=== PATIENT | male | born 1945 | race Caucasian/White ===

== ENCOUNTER 2017-08-19 16:19 | Inpatient (IN) | payer MEDICARE, MEDICAID ==
[~2017-08-19] VITALS: Ht 167.6 cm; Wt 72.0 kg
[2017-08-19] MEDS ORDERED: SODIUM CHLORIDE 0.9% FLUSH 10 ML FLUSH IVF PRN (16:45)
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
[2017-08-19 16:55] VITALS: BP 142/74; PULSE 100; RESP 18; TEMP 99.9; O2SAT 99
[2017-08-19 17:00] VITALS: RESP 18; O2SAT 100
[2017-08-19 17:02] VITALS: BP 142/74; PULSE 102; RESP 18; TEMP 99.9; O2SAT 99
[2017-08-19] MEDS ORDERED: HYDROmorphone HCL PF 1 MG/ML VIAL IV PUSH ONE (17:15)
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
[2017-08-19 17:45] LABS: AUTOMATED NEUTROPHIL # 6.9 TH/MM3 (1.8-7.7); BASOPHIL % 0.3 % (0.0-2.0); EOSINOPHIL % 0.1 % (0.0-4.0); HEMATOCRIT 40.3 % (39.0-51.0); HEMO FLAGS DIFF FINAL; LYMPH % 10.6 % (9.0-44.0); LYMPHOCYTE # 0.9 TH/MM3 (1.0-4.8); MEAN CELL VOLUME 92.4 FL (80.0-100.0); MEAN CORPUSCULAR HEMOGLOBIN 31.3 PG (27.0-34.0); MEAN CORPUSCULAR HGB CONC 33.9 % (32.0-36.0); PLATELET COUNT 184 TH/MM3 (150-450); RED BLOOD COUNT 4.37 MIL/MM3 (4.50-5.90); RED CELL DISTRIBUTION WIDTH 13.9 % (11.6-17.2); WHITE BLOOD COUNT 8.3 TH/MM3 (4.0-11.0)
[2017-08-19 18:03] LABS: PROTHROMBIN TIME - PATIENT 10.9 SEC (9.8-11.6)
[2017-08-19] MEDS ORDERED: ACETAMINOPHEN/HYDROcodone 325 MG/10 MG TAB PO PRN (18:30)
[2017-08-19] MEDS ORDERED: ONDANSETRON HCL 4 MG/2 ML VIAL IV PUSH PRN (18:30)
[2017-08-19] MEDS ORDERED: PANTOPRAZOLE SODIUM 40 MG VIAL IV PUSH ONE (18:30)
[2017-08-19] MEDS ORDERED: ENALAPRILAT 1.25 MG/ML VIAL IV PUSH PRN (18:30)
[2017-08-19] MEDS ORDERED: LACTULOSE SYRUP 20 GM/30 ML CUP PO PRN (18:30)
[2017-08-19] MEDS ORDERED: SODIUM CHLORIDE 0.9% FLUSH 10 ML FLUSH IV FLUSH PRN (18:30)
[2017-08-19] MEDS ORDERED: ACETAMINOPHEN/HYDROcodone 325 MG/5 MG TAB PO PRN (18:30)
[2017-08-19] MEDS ORDERED: ACETAMINOPHEN 325 MG TAB PO PRN (18:30)
[2017-08-19] MEDS ORDERED: IOHEXOL 350 MG/ML 10 ML VIAL (for RAD DIAG) IVCONTRAST ONE (18:58)
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
[2017-08-19 19:30] VITALS: O2SAT 96
[2017-08-19 20:39] VITALS: BP 139/71; PULSE 84; RESP 17; TEMP 98; O2SAT 97
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
[2017-08-19] MEDS: DOCUSATE SODIUM 50 MG/SENNA 8.6 MG TAB PO SCH (21:00)
[2017-08-19 21:04] LABS: HEMATOCRIT 36.4 % (39.0-51.0); MEAN CELL VOLUME 92.2 FL (80.0-100.0); MEAN CORPUSCULAR HEMOGLOBIN 31.6 PG (27.0-34.0); MEAN CORPUSCULAR HGB CONC 34.3 % (32.0-36.0); PLATELET COUNT 170 TH/MM3 (150-450); RED BLOOD COUNT 3.95 MIL/MM3 (4.50-5.90); RED CELL DISTRIBUTION WIDTH 14.1 % (11.6-17.2); REVIEW FLAG FINAL; WHITE BLOOD COUNT 6.2 TH/MM3 (4.0-11.0)
[2017-08-19] MEDS: SODIUM CHLOR 0.9% 1000 ML INJ 1,000 ML IV SCH (21:39)
[2017-08-19 21:44] VITALS: PULSE 93
[2017-08-20] VITALS (9 sets, daily range): BP systolic 134–167; BP diastolic 67–82; PULSE 89–104; RESP 16–18; TEMP 96.7–99.4; O2SAT 93–99
[2017-08-20] MEDS: MORPHINE SULFATE 4 MG/ML INJ IV PUSH PRN ×2 (02:04→05:12)
[2017-08-20] MEDS: SODIUM CHLOR 0.9% 1000 ML INJ 1,000 ML IV SCH (05:14)
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
[2017-08-20 07:49] LABS: AUTOMATED NEUTROPHIL # 4.2 TH/MM3 (1.8-7.7); BASOPHIL % 0.3 % (0.0-2.0); EOSINOPHIL % 0.4 % (0.0-4.0); HEMATOCRIT 34.2 % (39.0-51.0); HEMO FLAGS DIFF FINAL; LYMPH % 19.4 % (9.0-44.0); LYMPHOCYTE # 1.2 TH/MM3 (1.0-4.8); MEAN CELL VOLUME 92.2 FL (80.0-100.0); MEAN CORPUSCULAR HEMOGLOBIN 32.1 PG (27.0-34.0); MEAN CORPUSCULAR HGB CONC 34.9 % (32.0-36.0); MONO % 9.2 % (0.0-8.0); NEUT % 70.7 % (16.0-70.0); PLATELET COUNT 141 TH/MM3 (150-450); RED BLOOD COUNT 3.71 MIL/MM3 (4.50-5.90); RED CELL DISTRIBUTION WIDTH 14.2 % (11.6-17.2); WHITE BLOOD COUNT 5.9 TH/MM3 (4.0-11.0)
[2017-08-20] MEDS: RESP: ALBUTEROL 2.5 MG/IPRATROPIUM 0.5 MG NEB (SCH) NEB ×4 (08:00→20:32)
[2017-08-20 08:12] LABS: ALT (GPT) 18 U/L (12-78); ANION GAP 6 MEQ/L (5-15); AST (GOT) 22 U/L (15-37); BICARBONATE 27.2 MEQ/L (21.0-32.0); BLOOD UREA NITROGEN 13 MG/DL (7-18); CHLORIDE 104 MEQ/L (98-107); GLOMERULAR FILTRATION RATE 100 ML/MIN (>89); POTASSIUM 3.8 MEQ/L (3.5-5.1); SODIUM (NA) 137 MEQ/L (136-145)
[2017-08-20 08:14] LABS: ALKALINE PHOSPHATASE 74 U/L (45-117); TOTAL BILIRUBIN ADULT 0.8 MG/DL (0.2-1.0)
[2017-08-20] MEDS: DOCUSATE SODIUM 50 MG/SENNA 8.6 MG TAB PO SCH ×2 (08:56→20:50)
[2017-08-20] MEDS: POLYETHYLENE GLYCOL 17 GM PKG PO SCH (08:56)
[2017-08-20] MEDS: METHOCARBAMOL 500 MG TAB PO SCH ×3 (08:56→20:50)
[2017-08-20] MEDS: LIDOCAINE HCL 5% PATCH T-DERMAL SCH (08:57)
[2017-08-20] MEDS: ACETAMINOPHEN 1000 MG/100 ML 100 ML IV SCH ×3 (09:00→20:51)
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
[2017-08-20] MEDS ORDERED: MAGN30S PO (21:43)
[2017-08-20] MEDS ORDERED: PERI PO (21:43)
[2017-08-20] MEDS ORDERED: BEDSIDE COMMODE1 MI1 (21:51)
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
[2017-08-20] MEDS: MAGNESIUM HYDROXIDE SUSP 30 ML CUP PO SCH (23:04)
[2017-08-21] VITALS (7 sets, daily range): BP systolic 140–173; BP diastolic 71–91; PULSE 103–122; RESP 17–19; TEMP 96.5–98.3; O2SAT 90–99
[2017-08-21] MEDS: ACETAMINOPHEN 1000 MG/100 ML 100 ML IV SCH (02:01)
[2017-08-21] MEDS: METHOCARBAMOL 500 MG TAB PO SCH ×3 (05:29→20:55)
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
[2017-08-21] MEDS: POLYETHYLENE GLYCOL 17 GM PKG PO SCH (08:09)
[2017-08-21] MEDS: LIDOCAINE HCL 5% PATCH T-DERMAL SCH (08:09)
[2017-08-21] MEDS: LACTULOSE SYRUP 20 GM/30 ML CUP PO SCH (08:09)
[2017-08-21] MEDS: MAGNESIUM HYDROXIDE SUSP 30 ML CUP PO SCH ×2 (08:09→20:55)
[2017-08-21] MEDS: DOCUSATE SODIUM 50 MG/SENNA 8.6 MG TAB PO SCH ×2 (08:09→20:54)
[2017-08-21] MEDS: RESP: ALBUTEROL 2.5 MG/IPRATROPIUM 0.5 MG NEB (SCH) NEB ×4 (08:40→21:37)
[2017-08-21] MEDS ORDERED: DONE5TAB7 PO ×2 (09:25→09:59)
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
[2017-08-21] MEDS: MORPHINE SULFATE 4 MG/ML INJ IV PUSH PRN (12:20)
[2017-08-21] MEDS: ENOXAPARIN SODIUM 30 MG/0.3 ML SYRINGE SQ SCH (15:14)
[2017-08-21] MEDS: DONEPEZIL HCL 5 MG TAB PO SCH (20:55)
[2017-08-22] VITALS (7 sets, daily range): BP systolic 124–148; BP diastolic 64–85; PULSE 95–106; RESP 18–23; TEMP 96.7–98.8; O2SAT 90–97
[2017-08-22] MEDS: ENOXAPARIN SODIUM 30 MG/0.3 ML SYRINGE SQ SCH ×2 (02:37→13:41)
[2017-08-22 04:11] LABS: AUTOMATED NEUTROPHIL # 4.3 TH/MM3 (1.8-7.7); BASOPHIL % 0.6 % (0.0-2.0); EOSINOPHIL # 0.1 TH/MM3 (0-0.4); EOSINOPHIL % 0.9 % (0.0-4.0); HEMATOCRIT 34.4 % (39.0-51.0); HEMO FLAGS DIFF FINAL; LYMPHOCYTE # 1.5 TH/MM3 (1.0-4.8); MEAN CELL VOLUME 93.2 FL (80.0-100.0); MEAN CORPUSCULAR HEMOGLOBIN 30.9 PG (27.0-34.0); MEAN CORPUSCULAR HGB CONC 33.1 % (32.0-36.0); MONO % 8.2 % (0.0-8.0); NEUT % 66.3 % (16.0-70.0); PLATELET COUNT 141 TH/MM3 (150-450); RED BLOOD COUNT 3.69 MIL/MM3 (4.50-5.90); RED CELL DISTRIBUTION WIDTH 14.2 % (11.6-17.2); WHITE BLOOD COUNT 6.4 TH/MM3 (4.0-11.0)
[2017-08-22 04:35] LABS: POTASSIUM 3.6 MEQ/L (3.5-5.1)
[2017-08-22] MEDS: METHOCARBAMOL 500 MG TAB PO SCH ×3 (05:40→21:42)
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
[2017-08-22] MEDS: RESP: ALBUTEROL 2.5 MG/IPRATROPIUM 0.5 MG NEB (SCH) NEB ×4 (08:22→20:02)
[2017-08-22] MEDS: LACTULOSE SYRUP 20 GM/30 ML CUP PO SCH (09:27)
[2017-08-22] MEDS: MAGNESIUM HYDROXIDE SUSP 30 ML CUP PO SCH ×2 (09:28→21:35)
[2017-08-22] MEDS: DOCUSATE SODIUM 50 MG/SENNA 8.6 MG TAB PO SCH ×2 (09:28→21:35)
[2017-08-22] MEDS: LIDOCAINE HCL 5% PATCH T-DERMAL SCH (09:28)
[2017-08-22] MEDS: POLYETHYLENE GLYCOL 17 GM PKG PO SCH (09:28)
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
[2017-08-22] MEDS: DONEPEZIL HCL 5 MG TAB PO SCH (21:35)
[2017-08-22] MEDS ORDERED: METH500T3 PO (21:44)
[2017-08-22] MEDS ORDERED: ENOX30P SQ (21:44)
[2017-08-22] MEDS ORDERED: OXYC-392 PO (21:45)
[2017-08-22] MEDS ORDERED: Lactulose Liq PO (21:45)
[2017-08-23 00:16] VITALS: BP 131/68; PULSE 69; RESP 17; TEMP 98.2; O2SAT 96
[2017-08-23] MEDS: ENOXAPARIN SODIUM 30 MG/0.3 ML SYRINGE SQ SCH ×2 (03:47→14:28)
[2017-08-23] MEDS: METHOCARBAMOL 500 MG TAB PO SCH ×2 (05:34→14:28)
[2017-08-23] MEDS: RESP: ALBUTEROL 2.5 MG/IPRATROPIUM 0.5 MG NEB (SCH) NEB ×2 (07:56→12:00)
[2017-08-23 07:58] VITALS: O2SAT 95
[2017-08-23 08:00] VITALS: BP 138/69; PULSE 98; RESP 18; TEMP 97.7; O2SAT 99
[2017-08-23] MEDS ORDERED: FAMO1TAB37 PO (08:00)
[2017-08-23] MEDS: LACTULOSE SYRUP 20 GM/30 ML CUP PO SCH (09:00)
[2017-08-23] MEDS: DOCUSATE SODIUM 50 MG/SENNA 8.6 MG TAB PO SCH (10:44)
[2017-08-23] MEDS: POLYETHYLENE GLYCOL 17 GM PKG PO SCH (10:44)
[2017-08-23] MEDS: MAGNESIUM HYDROXIDE SUSP 30 ML CUP PO SCH (10:46)
[2017-08-23] MEDS: LIDOCAINE HCL 5% PATCH T-DERMAL SCH (11:01)
[2017-08-23 12:00] VITALS: BP 144/79; PULSE 100; RESP 16; TEMP 98.4; O2SAT 93
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
[2017-08-23] MEDS ORDERED: BISACODYL EC 5 MG TABEC PO ONE (15:00)
[2017-08-23] MEDS ORDERED: BISACODYL 10 MG SUPP RECTAL ONE (15:00)
[2017-08-23 16:00] VITALS: BP 135/82; PULSE 98; RESP 16; TEMP 98; O2SAT 95
== END 2017-08-23 16:41 | DRG 964 ==
LOC: NEPC 16:19 → NEDA 17:08 → N07B 19:44
PROVIDERS: ADMIT Surgery Trauma Surgery; ATTEND Surgery Trauma Surgery
DX: S37.092A Other injury of left kidney, initial encounter (principal); S27.321A Contusion of lung, unilateral, initial encounter; S22.42XA Multiple fractures of ribs, left side, initial encounter for closed fracture; F03.90 Unspecified dementia, unspecified severity, without behavioral disturbance, psychotic disturbance, mood disturbance, and anxiety; N28.1 Cyst of kidney, acquired; S42.022A Displaced fracture of shaft of left clavicle, initial encounter for closed fracture; I10 Essential (primary) hypertension; B19.20 Unspecified viral hepatitis C without hepatic coma; Z72.0 Tobacco use; S42.021A Displaced fracture of shaft of right clavicle, initial encounter for closed fracture; V43.52XA Car driver injured in collision with other type car in traffic accident, initial encounter; Y92.410 Unspecified street and highway as the place of occurrence of the external cause
CPT/HCPCS: 71010; 73000; 74177; 80048; 80053; 85025; 85027; 85610; 85730; 86850; 86900; 86901; 94150; 94640; 94664; 94667; 94668; 99285; C9113; J0131; J1170; J1650; J2270; J7030; Q9967